=== PATIENT | female | born 1945 | race Caucasian/White ===

== ENCOUNTER → 2017-01-15 | Outpatient (CLI) | payer OTHER, MEDICARE | LOC: BMCIMAGING 10:27 | DX: Z12.31 Encounter for screening mammogram for malignant neoplasm of breast (principal) | CPT/HCPCS: G0202 ==

== ENCOUNTER → 2017-06-25 | Outpatient (CLI) | payer OTHER, MEDICARE | LOC: BMCIMAGING 11:15 | PROVIDERS: ATTEND Physician Assistant Medical | DX: D86.9 Sarcoidosis, unspecified (principal) ==

== ENCOUNTER → 2017-06-30 | Outpatient (CLI) | payer OTHER, MEDICARE | LOC: BMCIMAGING 10:48 | PROVIDERS: ATTEND Physician Assistant Medical | DX: Z13.820 Encounter for screening for osteoporosis (principal); M85.80 Other specified disorders of bone density and structure, unspecified site ==

== ENCOUNTER → 2017-07-06 | Outpatient (CLI) | payer OTHER, MEDICARE | LOC: FIMAGING 12:56 | PROVIDERS: ATTEND Internal Medicine Pulmonary Disease | DX: J98.6 Disorders of diaphragm (principal) ==

== ENCOUNTER → 2018-02-15 | Outpatient (CLI) | payer OTHER, MEDICARE | LOC: BMCIMAGING 12:50 | PROVIDERS: ATTEND Physician Assistant Medical | DX: Z12.31 Encounter for screening mammogram for malignant neoplasm of breast (principal) ==

== ENCOUNTER → 2018-06-14 | Outpatient (CLI) | payer OTHER, MEDICARE | LOC: BMCIMAGING 09:47 | PROVIDERS: ATTEND Physician Assistant Medical | DX: N63.12 Unspecified lump in the right breast, upper inner quadrant (principal) ==

== ENCOUNTER 2018-06-18 13:12 | Day surgery (SDC) | payer OTHER, MEDICARE ==
[2018-06-18] MEDS ORDERED: AVITENE POWDER 1 GM JAR TP ONE (14:31)
[2018-06-18] MEDS ORDERED: LIDOCAINE 1% 300 MG/30 ML SDV ONE ×2 (14:31→15:03)
[2018-06-18] MEDS ORDERED: BUPIVACAINE 0.25% 30 ML SDV ONE ×2 (14:31→15:03)
[2018-06-18] MEDS ORDERED: NA BICARBONATE 50 MEQ/50 ML VIAL ONE (14:31)
--- NOTE | 2018-06-18 15:41 | PDHPUP ---
History & Physical Update H&P update statement: This history and physical update is based on an assessment of the patient which was completed after admission or registration (within 24 hours), but prior to the surgery/procedure. H&P update: H&P reviewed & patient examined (right breast mass confirmed and marked.), no change in patient's condition since H&P completed
[2018-06-18 16:41] VITALS: BP 176/100
[2018-06-18] MEDS ORDERED: HYDROCODONE/APAP 5/325 TAB PO PRN (16:56)
--- NOTE | 2018-06-18 17:00 | POSTOPPROG ---
Post Op Note Date of Operation: 06/18/18 Surgeon: Monico Dempsey (, FACS) Anesthesia: Local (Specify) (1% lido .25 % bupivicaine) Pre-op Diagnosis: right breast mass Procedure: right excisional breast biopsy Findings: 4 mm nodule excised and submitted for permanent section Inf/Abcess present in the surg proc area at time of surgery?: No
--- NOTE | 2018-06-18 19:01 | GOP ---
[f rep st] OPERATIVE REPORT DATE OF OPERATION: SURGEON: Monico Dempsey MD ANESTHESIA: Local. PREOPERATIVE DIAGNOSIS: Right breast mass. POSTOPERATIVE DIAGNOSIS: Right breast mass. PROCEDURE PERFORMED: Right excisional breast biopsy. FINDINGS: Circumscribed 4 mm nodule consistent with the palpable and sonographically confirmed mass, excised with a rim of normal surrounding fibrofatty tissue and submitted for permanent section. ESTIMATED BLOOD LOSS: Less than 10 cc. DESCRIPTION OF PROCEDURE: After informed consent was obtained, the patient was brought to the operat ing room and placed supine with the right arm extended. The right breast was prepped with alcohol be cause of an allergy to both Betadine and chlorhexidine, and this was allowed to dry for several minut es. The field was then draped and before proceeding, a time-out and identification of the patient wa s performed. The mass in question was in the upper inner quadrant of the right breast and I did conf irm the finding in the preoperative area and marked the skin with a marking pen. The areolar border was infiltrated with 0.25% Marcaine, 1% lidocaine and incised in a circumareolar fashion between appr oximately 12 o'clock and 3 o'clock position. Dissection was carried out in the deep subcutaneous kevin ne cephalad to the area of the palpable mass. This was located by palpation and confirmed by visuali zation. Surrounding breast tissue was incised deep to this after further infiltration of a local ane sthetic mixture. The specimen was removed from the field and submitted to Pathology for permanent se ction with the palpable nodule confirmed both visually and by palpation. Hemostasis was secured with cautery. The subcutaneous tissues were approximated with 3-0 Monocryl suture. Skin closed with 4-0 Monocryl suture in a subcuticular fashion. Mastisol and topical Dermabond were applied. Patient re turned to the recovery room in satisfactory condition. Needle, sponge, and instrument count correct. COMPLICATIONS: None. Copy requested to: KULWINDER Pat /[id number]/MODL
== END 2018-06-18 16:45 | disposition home or self-care (01) ==
LOC: FSGY 13:12
PROVIDERS: ATTEND Surgery
PROC: 0HBT0ZX Excision of Right Breast, Open Approach, Diagnostic (ICD-10-PCS; principal; 2018-06-18 14:45)
DX: N60.91 Unspecified benign mammary dysplasia of right breast (principal)

== ENCOUNTER → 2018-10-22 | Outpatient (CLI) | payer OTHER, MEDICARE | LOC: BMCIMAGING 09:50 | PROVIDERS: ATTEND Physician Assistant Medical | DX: J32.0 Chronic maxillary sinusitis (principal); M85.2 Hyperostosis of skull ==

== ENCOUNTER 2019-01-01 03:37 | Observation (INO) | payer OTHER, MEDICARE ==
[2019-01-01] MEDS ORDERED: NITROGLYCERIN 0.4 MG BTL SL ONE (03:43)
--- NOTE | 2019-01-01 03:46 | EDPHY ---
H & P Time Seen by Provider: 01/01/19 03:44 HPI/ROS: HPI CHIEF COMPLAINT: Left-sided chest pressure, hypertension. HISTORY OF PRESENT ILLNESS: This is a very pleasant 73-year-old female she has underlying history of hypertension, sarcoidosis, she presents emergency room by ambulance for chest pain. Patient reports that she had left-sided chest pain for the past 2 days intermittently but getting worse tonight. She describes a pressure sensation left chest. Does not radiate. She also has some shortness of breath. Took her blood pressure noticed it was high. She arrives to ER room 4 where I greeted her, she is noted to be hypertensive 200/100. Complaining of left-sided chest pressure. She did receive full-dose aspirin by EMS. As well as 1 dose of nitroglycerin which improved her chest pressure. Still has ongoing discomfort. Past Medical History: History of sarcoidosis, hypertension Past Surgical History: Denies recent surgery Social History: Denies drugs alcohol tobacco. Family History: Noncontributory ROS REVIEW OF SYSTEMS: 10 Systems were reviewed and negative with the exception of the elements mentioned in the history of present illness. Exam Constitutional triage nursing summary reviewed, vital signs reviewed, awake/ alert. Hypertensive. Eyes normal conjunctivae and sclera, EOMI, PERRLA. HENT normal inspection, atraumatic, moist mucus membranes, no epistaxis, neck supple/ no meningismus, no raccoon eyes. Respiratory clear to auscultation bilaterally, normal breath sounds, no respiratory distress, no wheezing. Cardiovascular rate normal, regular rhythm, no murmur, no edema, distal pulses normal. Gastrointestinal soft, non-tender, no rebound, no guarding, normal bowel sounds, no distension, no pulsatile mass. Genitourinary no CVA tenderness. Musculoskeletal no midline vertebral tenderness, full range of motion, no calf swelling, no tenderness of extremities, no meningismus, good pulses, neurovascularly intact. Skin pink, warm, & dry, no rash, skin atraumatic. Neurologic awake, alert and oriented x 3, AAOx3, moves all 4 extremities equally, motor intact, sensory intact, CN II-XII intact, normal cerebellar, normal vision, normal speech. Psychiatric normal mood/affect. Heme/Lymph/Immune no lymphadenopathy. Differential Diagnosis: Differential diagnosis includes but is not limited to: ACS, atypical chest pain, pneumothorax, pneumonia, pulmonary embolism, aortic dissection, congestive heart failure, tumor, musculoskeletal pain, esophageal pain, GERD, peptic ulcer disease, pancreatitis Medical Decision Making: Plan for this patient IV establishment with EKG, hot wort settler, chest x-ray, troponin, D-dimer, electrolytes, BNP. Re- evaluate. Re-evaluation: EKG INTERPRETATION BY ME ON RECORD IN [employer] SYSTEM. IMPRESSION time of EKG 3:51 a.m., sinus tach 107, LVH present. No ST elevation. Point care troponin 0.00. BNP is not elevated. D-dimer positive. Remote history of PE according to the patient. Will proceed with CT angiogram of the chest. Her EKG was noted to be tachycardic, she complaining of shortness of breath and chest pressure. In the setting of positive D-dimer will proceed with CT angiogram. CT angiogram of the chest faxed to me 5:59 a.m. By direct Radiology Shows suboptimal contrast bolus timing further evaluation of pulmonary embolism however no large central filling defects within the pulmonary arterial system no acute intrathoracic findings elevation the right hemidiaphragm Extensive postoperative changes in the upper abdomen with multiple foci of free air in the biliary tree throughout to be expected swallowed the surgical interventions Atherosclerosis. 0630: Hospitalist service consult to Dr. Rodney, agrees to admit Patient agrees for hospital admission and observation Source: Patient - Personal History Tetanus Vaccine Date: 2009 - Medical/Surgical History Hx Asthma: No Hx Chronic Respiratory Disease: No Hx Diabetes: Yes Hx Cardiac Disease: No Hx Renal Disease: No Hx Cirrhosis: No Hx Alcoholism: No Hx HIV/AIDS: No Hx Splenectomy or Spleen Trauma: No - Social History Smoking Status: Never smoked Constitutional: Initial Vital Signs Temperature (C) 36.6 C 01/01/19 03:39 Heart Rate 115 H 01/01/19 03:39 Respiratory Rate 24 H 01/01/19 03:39 Blood Pressure 159/99 H 01/01/19 03:39 O2 Sat (%) 90 L 01/01/19 03:39 O2 Delivery Mode Nasal Cannula O2 (L/minute) 2 Allergies/Adverse Reactions: povidone-iodine Allergy (Unknown, Verified 01/01/19 03:43) Hives soap Allergy (Unknown, Verified 01/01/19 03:43) Hives Cephalosporins Allergy (Verified 01/01/19 03:43) Rash chlorhexidine Allergy (Verified 01/01/19 03:43) Hives codeine Allergy (Verified 01/01/19 03:43) iodine Allergy (Verified 01/01/19 03:43) Rash lactose Allergy (Verified 01/01/19 03:43) levofloxacin Allergy (Verified 01/01/19 03:43) Hives Penicillins Allergy (Verified 01/01/19 03:43) soap [From Betadine] Allergy (Verified 01/01/19 03:43) Hives Home Medications: Medication Instructions Recorded Atenolol [Tenormin 25 mg (*)] 25 mg PO DAILY 05/18/15 Cholecalciferol Vit D3 [Vitamin D3 50,000 unit PO ZIMMER 05/18/15 (*)] Fluticasone Nasal [Flonase Nasal 1 sprays EACHNARE DAILY PRN 05/18/15 Doss] Multivitamins [Multivitamin (*)] 1 each PO DAILY 05/18/15 Acetamn/Diphenhydramine 500/25 2 each PO HS PRN 09/25/15 [Tylenol PM (*)] Ibuprofen [Motrin (*)] 400 mg PO Q6H PRN 09/25/15 Lansoprazole [Prevacid] 30 mg PO DAILY 09/25/15 Dicyclomine [Bentyl 20 MG (*)] 20 mg PO DAILY 01/01/19 Herbals/Supplements -Info Only 1 ea PO DAILY 01/01/19 Lisinopril [Zestril 10 mg (*)] 10 mg PO DAILY #30 tab 01/02/19 Medical Decision Making - Data Points Laboratory Results: Laboratory Results 01/01/19 05:45 01/01/19 03:55 Medications Given: Discontinued Medications Acetaminophen (Tylenol) 650 mg PO Q4HRS PRN PRN Reason: Pain, Mild/Fever, Can Take PO Stop: 06/30/19 06:25 Last Admin: 01/01/19 13:58 Dose: 650 mg Atenolol (Tenormin) 25 mg PO DAILY [facility]ECKY Stop: 06/30/19 16:29 Last Admin: 01/02/19 09:26 Dose: 25 mg Dicyclomine HCl (Bentyl) 20 mg PO DAILY [facility] Stop: 07/01/19 08:59 Last Admin: 01/02/19 09:30 Dose: 20 mg Hydralazine HCl (Apresoline) 10 mg PO ONCE ONE Stop: 01/01/19 07:18 Last Admin: 01/01/19 07:52 Dose: 10 mg Lisinopril (Zestril) 10 mg PO DAILY [facility] Stop: 06/30/19 16:14 Last Admin: 01/02/19 09:27 Dose: 10 mg Multivitamins (Tab-A-Maxine) 1 each PO DAILY BECKY Stop: 07/01/19 08:59 Last Admin: 01/02/19 13:57 Dose: 1 each Nitroglycerin (Nitrostat) 0.4 mg SL EDNOW ONE Stop: 01/01/19 03:44 Last Admin: 01/01/19 04:01 Dose: 0.4 mg Nitroglycerin (Nitrostat) 0.4 mg SL Q5M PRN PRN Reason: Chest Pain Stop: 06/30/19 06:28 Last Admin: 01/02/19 04:10 Dose: 0.4 mg Pantoprazole Sodium (Protonix) 40 mg PO DAILY [facility] Stop: 07/01/19 08:59 Last Admin: 01/02/19 09:27 Dose: 40 mg Point of Care Test Results: Chemistry 01/01/19 03:53 POC Troponin I 0.00 ng/mL ng/mL (0.00-0.08) Departure - Departure Disposition: [facility] Inpatient Acute Clinical Impression: Chest pain Qualifiers: Chest pain type: unspecified Qualified Code(s): R07.9 - Chest pain, unspecified Condition: Fair
[2019-01-01 04:17] LABS: INR 0.96 (0.83-1.16)
[2019-01-01] MEDS ORDERED: IOHEXOL 350mgI/ML (OMNIPAQUE) 150 ML BTL IV ONE (04:53)
[2019-01-01 05:55] LABS: PLATELET COUNT 226 10^3/uL (150-400)
[2019-01-01] MEDS ORDERED: ONDANSETRON DISINTEGRATING 4 MG TAB PO PRN (06:26)
[2019-01-01] MEDS ORDERED: ACETAMINOPHEN 325 MG TAB PO PRN (06:26)
[2019-01-01] MEDS ORDERED: ONDANSETRON 4 MG/2 ML VIAL IVP PRN (06:26)
[2019-01-01] MEDS ORDERED: hydrALAZINE 10 MG TAB PO ONE (07:17)
--- NOTE | 2019-01-01 07:34 | CPEKG ---
Test Reason : OPEN Blood Pressure : / mmHG Vent. Rate : 107 BPM Atrial Rate : 106 BPM P-R Int : 175 ms QRS Dur : 071 ms QT Int : 344 ms P-R-T Axes : 040 002 -01 degrees QTc Int : 459 ms Sinus tachycardia Left ventricular hypertrophy Confirmed by Monico Kothari ([id number]) on 01/01/2019 7:34:00 AM Referred By: Monico Kothari Confirmed By:Monico Kothari
--- NOTE | 2019-01-01 09:03 | GHP ---
[f rep st] HISTORY AND PHYSICAL DATE OF ADMISSION: 01/01/2019 SOURCE: Patient provides history, appears reliable. EMR was reviewed and case discussed with ED provider. CHIEF COMPLAINT: Chest pain, shortness of breath. HISTORY OF PRESENT ILLNESS: Very pleasant 73-year-old female with past medical history significant for hypertension, sarcoidosis, history of DVT not on chronic anticoagulation, chronic pain, osteoarthritis, chronic pancreatitis, who presents to the emergency department today with complaints of 2 days of intermittent left-sided chest pain and pressure. The patient also reports an associated shortness of breath, worse with exertion. She has noted some increased lower extremity edema. No orthopnea reported. The patient has been having some issues with elevated blood pressures at home. She was started on hydrochlorothiazide and has taken a single dose, in addition to her usual atenolol. The patient reports that when she went to bed, she did not have any chest discomfort or pain. She woke up with left-sided chest pressure. She checked her blood pressure and noted that it was elevated. She was having increasing discomfort and called for an ambulance. EMS arrived and blood pressures were greater than 200/100. She was given a full dose of aspirin, a single dose of nitroglycerin which improved in pain, but did not completely resolve it. In the emergency department, patient was noted to still have elevated blood pressure in 200s over 100s. She was given an additional dose of nitroglycerin with more improvement in her chest pain, but still persists. The patient does report a history of degenerative disk disease of the cervical spine with chronic paresthesias of both arms. She thought perhaps some of her chest discomfort was related to musculoskeletal symptoms. However, symptoms did worsen and given her elevated blood pressures, the patient became increasingly concerned. No family history of coronary artery disease is reported. REVIEW OF SYSTEMS: GENERAL: No fevers or chills. ENT: Patient reports chronic sinusitis for which she takes nasal sprays. MUSCULOSKELETAL: Patient with chronic paresthesias in both arms. Reports some arthritis and degenerative disks in the cervical spine. She also reports chronic knee pain with a history of multiple knee surgeries and revisions and limited mobility. The remainder of 10 systems reviewed, negative except as noted above. ALLERGIES: To iodine, soap, cephalosporins, chlorhexidine, codeine, lactose, levofloxacin, penicillin, and soap. HOME MEDICATIONS: As provided by patient's list: Atenolol 25 mg in the morning , multivitamin daily, vitamin D 39925 units weekly, vitamin D daily, dicyclomine 10 mg in the morning and 1-2 tabs up to twice daily p.r.n., Prevacid 1 tab p.o. in the morning, Tylenol PM at bedtime, hydrochlorothiazide 25 mg daily. PAST MEDICAL HISTORY: Sarcoidosis lungs, chronic pancreatitis, hypertension, history of DVT remotely, arthritis, degenerative disk disease. PAST SURGICAL HISTORY: Significant for appendectomy, hysterectomy, cholecystectomy, vein stripping, sinus surgery, left and right TKA with revisions on the left and quad tendon repair on the left, multiple ERCPs, sleeve gastrectomy, steroid injections in the lumbar spine, mediastinoscopy with a left breast biopsy. FAMILY HISTORY: Mother with HTN, diabetes, CHF, age 80s. Father with HTN, diabetes, dementia, and CHF. Four brothers and 1 sister; one brother age 56 from mental cell lymphoma, and 2 brothers with diabetes. 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 She moved from [place] 7 years ago. She lives independently. She has a son who lives locally. She does not smoke, drink, or utilize any drugs. PHYSICAL EXAMINATION: VITAL SIGNS: Upon arrival to the emergency department, blood pressure was 200/100 at bedside and 175/100, heart rate 99, respiratory rate 16, O2 saturation 93% on room air. GENERAL: No acute distress, pleasant, morbidly obese elderly female, lying comfortably in the bed. She is awake, pleasant and cooperative. HEAD: Normocephalic, atraumatic. Eyes: Extraocular muscles grossly intact. Pupils are equal and symmetric. No apparent scleral icterus conjunctival injection. ENT: Mucous membranes appear moist. No nasal discharge. NECK: Supple. Trachea midline. CARDIOVASCULAR: Tachycardic with regular rhythm. No murmurs, rubs, or gallops appreciated. RESPIRATORY: Lungs clear to auscultation bilaterally. No wheezes, rales, or rhonchi appreciated. ABDOMEN: Obese, soft, nontender to palpation. No rebound, guarding, or masses appreciated. Positive bowel sounds. : No suprapubic tenderness to palpation. No Calero catheter in place. EXTREMITIES: Generalized deconditioning and weakness. Able to move all extremities while lying on the gurney. NEURO: Grossly nonfocal. No facial drooping. PSYCHIATRIC: Thought process, content and questions are all appropriate. Patient is pleasant, cooperative, awake, alert, and oriented x3. LABORATORY STUDIES: WBC 7.60, H and H 13.6 and 42.2, MCV of 90.0, platelet count is 226. PT 13.0, INR 0.96, PTT is 22.6. D-dimer 0.66. Sodium is 140, potassium 4.2, chloride 106, CO2 25, anion gap 9, BUN is 26, creatinine 0.9. GFR greater than 60, glucose 133, calcium 9.7, magnesium 1.7, total bilirubin 0.6, conjugated 0.3. ALT is 30, AST is 25, alkaline phosphatase is 106. Troponin is negative. BtNP is 40. Total protein 7.3, albumin is 4.0. Chest x-ray: Image reviewed by me. Report is still pending. Elevated right hemidiaphragm, cardiomegaly. Compared to chest x-ray from 2017, stable. CT of the chest: Image and preliminary report was reviewed with limited assessment for PE due to timing of the contrast bolus, but no central PE appreciated. No acute intrathoracic findings. Elevation of the right hemidiaphragm. Extensive postoperative change in upper abdomen. Multiple foci of free air in the biliary tree. Expected sequelae of post surgical interventions and atherosclerosis. Compressive atelectasis in the right lower lobe. No focal consolidation. EKG: Sinus tachycardia in the 100s, LVH, QTc of 459. No acute ST changes, some T-wave inversions in the inferior leads. ASSESSMENT AND PLAN: A pleasant 73-year-old female with a history of hypertension, sarcoidosis, osteoarthritis, chronic pain, who presents to the emergency department today with complaints of left-sided chest pain, worsening over the last 2 days. 1. Chest pain. The patient without any acute EKG changes. Initial troponin is negative. Differential diagnosis including angina, hypertensive urgency, musculoskeletal etiology. CTA was negative for any evidence of PE or pneumonia. No significant pleuritic component to patient's chest pain. Plan for echocardiogram, Lexiscan stress if repeat troponin, EKG are negative. Patient reports that these were scheduled for next week. Patient would not be able to complete a treadmill stress due to her history of multiple knee surgeries, arthroplasty and revisions. The patient's blood pressures did improve as well as her chest pain with nitroglycerin. However, blood pressures have elevated again and chest pain has recurred. We will hold off on atenolol and give patient a dose of p.o. hydralazine at this time pending additional testing. I did discuss giving her daily dose of hydralazine. However, patient is concerned that she will have increased need to void and will not be able to complete stress testing. Will continue with hydralazine for now. Nitroglycerin will be available p.r.n. Repeat troponin and EKG 4 hours from initial. 2. Dyspnea with complaints of lower extremity edema. Echocardiogram as noted above. 3. Hypertensive urgency, accelerated hypertension. Medications as noted above. 4. Sinus tachycardia. No evidence of PE or respiratory distress. Lungs are clear. Heart rate has improved from time of arrival from the ED. We will monitor on telemetry. 5. Chronic pain due to neck and knee pain. Supportive care at this time, Tylenol. 6. History of sarcoidosis. The patient is not on any suppressive therapy. 7. History of deep vein thrombosis. SCDs as tolerated. 8. Fluid electrolyte nutrition: Sips and chips pending an additional cardiac evaluation. 9. Prophylaxis as noted above. CODE STATUS: Full. DISPOSITION: Patient admitted to observation status to PCU for close cardiac monitoring and additional evaluation as noted above. /[id number]/MODL MTDD
--- NOTE | 2019-01-01 10:42 | ECHO ---
[email or web address] [address] [address] Main: [phone] Fax: [email or web address] Echocardiogram Name: AUSTIN RUDD MR#: [id number] Study Date: 01/01/2019 Study Time: 09:49 AM Date of : 1945 Age: 73 year(s) Height: 160 cm (63 in.) Weight: 112.49 kg (248 lb.) BSA: 2.12 m2 Gender: Female Examination: Echo Indication: Cardiac: dyspnea, Chest Pain Image Quality: Adequate Contrast: Requested by: Anat Rodney BP: 164 mmHg/99 mmHg Heart Rate: Rhythm: Indication: Cardiac: dyspnea, Chest Pain Procedure Staff Flamer Sealer: Monica Whitmore RDCS Reading Physician: Musa Ware MD Requesting Provider: Conclusions: Normal size left ventricle. The ejection fraction is visually estimated to be 55 %. No regional wall motion abnormality. Normal RV function. Mild mitral valve regurgitation is present. The aortic valve is tri-leaflet. Trivial tricuspid valve regurgitation. No pericardial effusion. Measurements: Chambers Valvular Assessment AV/MV Valvular Assessment TV/PV Normal Normal Normal Name Value Range Name Value Range Name Value Range Ao Cecy (2D): 3.0 cm (1.4 cm-2.6 AV Vmax: 1.29 m/s (1 m/s-1.7 PV Vmax: 0.99 m/s (0.6 m/s-0.9 cm) m/s) m/s) IVSd (2D): 0.9 cm (0.6 cm-1.1 AV maxP mmHg ( - ) PV PGmax: 4 mmHg ( - ) cm) AV meanP mmHg ( - ) LVDd (2D): 4.1 cm (3.9 cm-5.3 BENJAMIN (VTI): 2.4 cm ( - ) cm) MV E Vmax: 0.60 m/s ( - ) LVDs (2D): 3.4 cm (2.1 cm-4 MV A Vmax: 0.98 m/s ( - ) cm) MV E/A: 0.61 ( - ) LVPWd (2D): 1.1 cm ( - ) MV PHT: 0.050 s ( - ) LVOTd 2.0 cm 2.0 cm mm MVA (PHT): 4.4 s ( - ) Visual EF: 55 % RVDd(2D): 3.6 cm (1.9 cm-3.8 cmmm) Continued Measurements: Chambers Valvular Assessment AV/MV Patient: AUSTIN RUDD Study Date: 01/01/2019 Page 1 of 2 09:49 AM Name Value Name Value LADs: 3.8 cm MV DecTime: 162 m/s LADs Lon.2 cm MV E' Septal: 0.06 m/s LA Area: 14.8 cm2 MV E/E' Septal: 10.30 LA Volume: 34 ml MV E/E' Lateral: 9.50 LA Volume Index: 16.0 ml/m2 Additional Vessels Name Value Ao Ascendin.6 cm Inferior Vena Cava: 1.5 cm Findings: Left Ventricle: Normal size left ventricle. No LV hypertrophy. Normal global systolic LV function. The ejection fraction is visually estimated to be 55 %. No regional wall motion abnormality. Normal diastolic LV function. Right Ventricle: Normal size right ventricle. Normal RV function. Left Atrium: The left atrium is normal in size. Right Atrium: The right atrium is normal in size. Mitral Valve: The mitral valve is normal in appearance and function. Mild mitral valve regurgitation is present. No mitral stenosis is present. Aortic Valve: The aortic valve is tri-leaflet. Aortic sclerosis is present. There is no significant aortic valve regurgitation. No aortic valve stenosis is present. Tricuspid Valve: The tricuspid valve is normal in appearance and function. Trivial tricuspid valve regurgitation. Pulmonic Valve: Pulmonary valve not well visualized. Aorta: The aorta is normal. Normal size aortic root measuring 3.0 cm. Normal size ascending aorta measuring 2.6 cm. IVC: The IVC is normal sized. Pericardium: No pericardial effusion. There is pericardial fat. Exam Comments: Limited acoustic windows due to body habitus. (No Signature Object) Patient: AUSTIN RUDD Study Date: 01/01/2019 Page 2 of 2 09:49 AM [id number]
[2019-01-01] MEDS ORDERED: REGADENOSON 0.4 MG/5 ML SYR IVP ONE (11:16)
--- NOTE | 2019-01-01 12:49 | CPR ---
[f rep st] NONINVASIVE CARDIAC PROCEDURE REPORT DATE OF PROCEDURE: 01/01/2019 PROCEDURE PERFORMED: Lexiscan nuclear stress test. INDICATION FOR PROCEDURE: The patient is a pleasant 73-year-old female with a known history of hyper tension who presents to [facility] with complaints of chest pain. She is currently c hest pain free. Decision was made to pursue pharmacologic nuclear stress test. She is unable to exe rcise secondary to multiple orthopedic injuries with bilateral knee replacements. DESCRIPTION OF PROCEDURE: After informed consent was obtained for pharmacologic nuclear stress test, the patient received 0.4 mg of Lexiscan. At peak hyperemia, patient received full injection of Tc99 m sestamibi. The patient tolerated the procedure well. She had no symptoms or ECG changes. CONCLUSION: 1. Negative pharmacologic stress. 2. Nuclear imaging pending. /[id number]/MODL
--- NOTE | 2019-01-01 15:39 | ASMTCMCOM ---
CM Note CM Note Notes: Pt is a 73 yo F, here under observation. Underwent stress test today. Discussed care with RN and MD during rounds, pt will likely be discharged independently, no therapies ordered. CM available if needs arise. Plan: Independent Date Signed: 01/01/2019 03:38 PM Electronically Signed By:RADHA Aguila
[2019-01-01] MEDS ORDERED: FLUTICASONE NASAL 120 SPRAYS/16 GM MDI EACHNARE PRN (16:05)
--- NOTE | 2019-01-01 16:12 | HOSPPROG ---
Hospitalist Progress Note Assessment/Plan: #CHEST Pain -negative pharmacological stress -Awaiting nuclear scan -negative trops and EKG #HTN with HTN urgency on admission -Start Lisinopril -Cont home meds -Will need monitor overnight to ensure no recurrence of HTN urgency #Dyspnea, now on RA -Does not appear volume overloaded -TTE with no e/o of CHF, essentially unremarkable #Hx of sarcoidosis Plan: Await nuclear scan BP mgmt per above Telemetry likely d/c tomorrow Subjective: no cp. reports AMIN, no sob currently Objective: Vital Signs Temp Pulse Resp BP Pulse Ox 36.8 C 111 H 20 159/97 H 91 L 01/01/19 13:38 01/01/19 13:38 01/01/19 13:38 01/01/19 13:38 01/01/19 13:38 PT 13.0 SEC (12.0-15.0) 01/01/19 03:55 INR 0.96 (0.83-1.16) 01/01/19 03:55 - Physical Exam Constitutional: no apparent distress Eyes: PERRL Ears, Nose, Mouth, Throat: moist mucous membranes, hearing normal Cardiovascular: regular rate and rhythym Respiratory: no respiratory distress Gastrointestinal: normoactive bowel sounds Skin: warm Neurologic: AAOx3 Psychiatric: interacting appropriately, not anxious, not encephalopathic Lymph, Heme, Immunologic: No petechiae ICD10 Worksheet Patient Problems: Problems Problem Status Onset Chest pain Acute Osteoarthritis of knee Acute
[2019-01-01] MEDS: ATENOLOL 25 MG TAB PO SCH (17:15)
[2019-01-01] MEDS: LISINOPRIL 10 MG TAB PO SCH (17:15)
[2019-01-02] MEDS: NITROGLYCERIN 0.4 MG BTL SL PRN ×2 (04:05→04:10)
[2019-01-02] MEDS ORDERED: PANTOPRAZOLE SODIUM 40 MG TAB PO SCH (09:00)
[2019-01-02] MEDS ORDERED: MULTIVITAMINS 1 EACH TAB PO SCH (09:00)
[2019-01-02] MEDS ORDERED: ATENOLOL 25 MG TAB PO SCH (09:00)
[2019-01-02] MEDS ORDERED: DICYCLOMINE 20 MG TAB PO SCH (09:00)
[2019-01-02] MEDS: ATENOLOL 25 MG TAB PO SCH (09:26)
[2019-01-02] MEDS: LISINOPRIL 10 MG TAB PO SCH (09:27)
[2019-01-02 11:01] VITALS: BP 113/75
--- NOTE | 2019-01-02 13:27 | PDHOMEO2F ---
Home Oxygen Face to Face Home Orders: I certify that a physician or a nurse practitioner or physician's certified surgical assistant has had a [id number] encounter with this patient on the date of this order due to the diagnosis listed, which relates to the primary reason the patient requires home oxygen. Alternative treatments have been tried, or considered, and deemed ineffective. It is anticipated that supplemental oxygen will result in improvement with treatment. Home oxygen qualifying diagnosis: MACK, Hypoxemia SpO2 on room air (%): 84 Frequency of home oxygen needed: during sleep Home oxygen liters per minute: 2 Home oxygen delivery device: nasal cannula Concentrator: Yes E-tanks for mobility and back up: Yes If ordering portable O2, is the patient mobile in the home?: Yes I certify that, based on these findings, the home oxygen is medically necessary for this patient for the following length of time. Length of time home oxygen needed: 99 years
--- NOTE | 2019-01-02 14:00 | ASMTDCNOTE ---
Case Management Discharge Discharge Order Complete? Answers: Yes Patient to Obtain Answers: via Family Medications Transportation Arranged Answers: Family/Friends Discharge Comments Notes: CM discussed discharge plan with RN. Pt is getting discharged independently, Family to transport. Pt going home with home O2. No CM needs identified. Date Signed: 01/02/2019 01:59 PM Electronically Signed By:RADHA Aguila
--- NOTE | 2019-01-02 14:37 | ASDISCHSUM ---
Discharge Information Plan Status:Home with No Needs Medically Cleared to Leave: Discharge Date: D/C Disposition:Home, Routine, Self-Care ADT D/C Disposition:Home, Routine, Self-Care Projected Discharge Date:01/02/2019 12:00 AM Transportation at D/C:Family Discharge Delay Reason: Follow-Up Date:01/02/2019 12:00 AM Discharge Slot: Final Diagnosis: Placement Information Patient Contact Information Contact Name:MARY Relationship:Nii Address:[address] City:[place] Alternate Phone: [facility]/Zip Code:[place] [address] Email: Financial Information Financial Class:Medicare Primary Plan Desc:MEDICARE OUTPATIENT Primary Plan Number:[id number] Secondary Plan Desc:[employer]/MDR SUPPLEMENT Secondary Plan Number:[id number] Assessment Information [facility] CM Progress Note CM Note CM Note Notes: Pt is a 73 yo F, here under observation. Underwent stress test today. Discussed care with RN and MD during rounds, pt will likely be discharged independently, no therapies ordered. CM available if needs arise. Plan: Independent Date Signed: 01/01/2019 03:38 PM Electronically Signed By:RADHA Aguila Case Management Discharge Plan Note Case Management Discharge Discharge Order Complete? Answers: Yes Patient to Obtain Answers: via Family Medications Transportation Arranged Answers: Family/Friends Discharge Comments Notes: CM discussed discharge plan with RN. Pt is getting discharged independently, Family to transport. Pt going home with home O2. No CM needs identified. Date Signed: 01/02/2019 01:59 PM Electronically Signed By:RADHA Aguila Intervention Information
[2019-01-02] MEDS ORDERED: CHOLECALCIFEROL VIT D3 50,000 UNIT CAP PO SCH (16:05)
--- NOTE | 2019-01-02 17:44 | PDDCSUM ---
Discharge Summary Discharge Summary: This is a 73 yo female who was admitted for chest pain. She had unremarkable/non ischemic EKG, TTE, Trops, Telemetry, and cardiac nuclear stress test. BP was elevated and she presented initially with HTN urgency. Meds were adjusted and Lisinopril was started. BP is now at target. She continues on her BB. The HCTZ has been discontinued. She reports some pedal edema prior to admission but has not had any here. She has remained Euvolemic. TTE did not indicate CHF. Therefore, she is not on a diuretic. This will need to be followed closely and if pedal edema returns, consider trial of Lasix vs restarting HCTZ. She likely has MACK and she has an op sleep study that has already been ordered by her PCP She has been noted to have nocturnal hypoxemia and she has been set up with supplemental O2 nocturnally while awaiting her sleep study. DDX: #CHEST Pain #HTN with HTN urgency on admission #Dyspnea, now on RA #Hx of sarcoidosis Exam: NAD AAOX3 RRR CTA S/NT/ND NO LE EDEMA MEDS: SEE MED REC TOTAL TIME SPENT ON D/C IS 40 MINS. D/W CARDIOLOGY
== END 2019-01-02 16:06 | disposition home or self-care (01) ==
LOC: EDUNIT# → F2W 09:20
PROVIDERS: ADMIT Family Medicine; ATTEND Family Medicine
DX: R07.89 Other chest pain (principal); I10 Essential (primary) hypertension; R06.00 Dyspnea, unspecified; D86.9 Sarcoidosis, unspecified; K86.1 Other chronic pancreatitis; M54.2 Cervicalgia; M25.569 Pain in unspecified knee; G89.29 Other chronic pain; Z86.718 Personal history of other venous thrombosis and embolism; Z90.49 Acquired absence of other specified parts of digestive tract
CPT/HCPCS: 71045; 71275; 78452; 93005; 93017; 93306; A9500; G0378; J2785; Q9967; 82435-PO; 82565-PO; 82947-PO; 84132-PO; 84295-PO; 84484-ER; 84520-PO; 85014-ER

== ENCOUNTER → 2019-02-17 | Outpatient (CLI) | payer OTHER, MEDICARE | LOC: BMCIMAGING 13:21 | PROVIDERS: ATTEND Surgery | DX: Z12.31 Encounter for screening mammogram for malignant neoplasm of breast (principal) ==

== ENCOUNTER → 2019-02-23 | Outpatient (CLI) | payer OTHER, MEDICARE | LOC: BMCIMAGING 09:35 | PROVIDERS: ATTEND Surgery | DX: N63.20 Unspecified lump in the left breast, unspecified quadrant (principal) ==

== ENCOUNTER → 2019-03-09 | Outpatient (CLI) | payer OTHER, MEDICARE ==
[~2019-03-09] MED LIST: BUPIVACAINE 0.5% 30 ML SDV ONE; LIDOCAINE 1% 300 MG/30 ML SDV ONE
== END ==
LOC: FIMAGING 07:17
PROVIDERS: ATTEND Surgery
PROC: 0HBV3ZX Excision of Bilateral Breast, Percutaneous Approach, Diagnostic (ICD-10-PCS; principal; 2019-03-09)
DX: N60.12 Diffuse cystic mastopathy of left breast (principal); R92.0 Mammographic microcalcification found on diagnostic imaging of breast